=== PATIENT | male | born 1980 | race Caucasian/White ===

== ENCOUNTER 2018-03-23 13:52 | Emergency (ER) | payer OTHER ==
[~2018-03-23] VITALS: Ht 175.3 cm; Wt 145.2 kg
[~2018-03-23 13:52] MED LIST: BLOOD PRESSURE; FLOMAX PO; NORCO 5-325 TA1 EACH PO; ULTRAM 50MG TAB50 MG PO; VICODIN; ZOFRAN4 MG PO
[2018-03-23] MEDS ORDERED: ROBAXIN 750 MG750 MG PO (15:25)
[2018-03-23] MEDS ORDERED: NABUMETONE 750750 M1 PO (15:25)
[2018-03-23] MEDS ORDERED: NORCO 5-325 TA1 EACH PO (15:25)
[2018-03-23 16:10] VITALS: BP 165/93
== END 2018-03-23 16:10 | disposition home or self-care (01) ==
LOC: M.ERS 13:52
DX: S32.010A Wedge compression fracture of first lumbar vertebra, initial encounter for closed fracture (principal); S93.602A Unspecified sprain of left foot, initial encounter; S00.31XA Abrasion of nose, initial encounter; W19.XXXA Unspecified fall, initial encounter; Y93.89 Activity, other specified; Y92.89 Other specified places as the place of occurrence of the external cause; Y99.8 Other external cause status; Z90.49 Acquired absence of other specified parts of digestive tract

== ENCOUNTER 2018-09-24 17:24 | Emergency (ER) | payer OTHER ==
[~2018-09-24] VITALS: Ht 175.3 cm; Wt 145.2 kg
[~2018-09-24 17:24] MED LIST changes: +NABUMETONE 750750 M1 PO; +ROBAXIN 750 MG750 MG PO
[2018-09-24] MEDS ORDERED: COZAAR 25 MG TA25 M2 PO (17:32)
[2018-09-24] MEDS ORDERED: NORVASC2.5 MG PO (17:32)
[2018-09-24] MEDS ORDERED: WELLBUTRIN XL300 MG PO (17:33)
[2018-09-24] MEDS ORDERED: DIFLUCAN200 MG PO (17:48)
[2018-09-24] MEDS ORDERED: BACTRIM DS TAB1 EACH PO (17:49)
[2018-09-24] MEDS ORDERED: KEFLEX500 M1 PO (17:49)
[2018-09-24 18:16] VITALS: BP 170/99
== END 2018-09-24 18:17 | disposition home or self-care (01) ==
LOC: M.ERS 17:24
DX: L02.611 Cutaneous abscess of right foot (principal); B35.3 Tinea pedis; I10 Essential (primary) hypertension; Z87.442 Personal history of urinary calculi; Z90.49 Acquired absence of other specified parts of digestive tract

== ENCOUNTER 2020-06-24 16:04 | Emergency (ER) | payer OTHER ==
[~2020-06-24] VITALS: Ht 175.3 cm; Wt 136.1 kg
[~2020-06-24 16:04] MED LIST changes: +BACTRIM DS TAB1 EACH PO; +DIFLUCAN200 MG PO; +KEFLEX500 M1 PO; +LOSARTAN-HCTZ1 EAC3 PO; +NORVASC10 MG PO; +WELLBUTRIN XL300 MG PO
[2020-06-24] MEDS ORDERED: GLUCOPHAGE1000 MG PO (16:22)
[2020-06-24] MEDS ORDERED: KEFLEX500 M1 PO (16:40)
[2020-06-24 17:17] VITALS: BP 161/71
== END 2020-06-24 17:17 | disposition home or self-care (01) ==
LOC: M.ERS 16:04
DX: S61.211A Laceration without foreign body of left index finger without damage to nail, initial encounter (principal); I10 Essential (primary) hypertension; E11.9 Type 2 diabetes mellitus without complications; Z79.899 Other long term (current) drug therapy; W26.8XXA Contact with other sharp object(s), not elsewhere classified, initial encounter; Y93.89 Activity, other specified; Y92.89 Other specified places as the place of occurrence of the external cause; Y99.8 Other external cause status